=== PATIENT | male | born 1960 | race Caucasian/White ===

== ENCOUNTER 2018-08-21 03:19 | Emergency (ER) | payer OTHER ==
[2018-08-21 03:54] LABS: Bilirubin Small (Negative); Blood, Urine Large (Negative); Clarity Clear (Clear); Glucose, Urine (Dipstick) Negative (Negative); Leukocyte Negative (Negative); Nitrite Negative (Negative); Protein, Urine (Dipstick) 30 mg/dL (Neg-Trace); Urobilinogen 0.2 mg/dL (0.2-1.0)
[2018-08-21 03:56] LABS: Specific Gravity, Urine 1.022 (1.002-1.036)
[2018-08-21] MEDS ORDERED: Ondansetron HCl/PF 4 MG/2 ML Vial ONE (03:56)
[2018-08-21] MEDS ORDERED: Sodium Chloride 0.9% 1,000 ML ONE (03:56)
[2018-08-21 03:57] LABS: Bacteria/HPF None Seen HPF (None Seen); RBC/HPF 21-50 HPF (0-3); Squamous Epithelial 0-3 HPF (0-3); WBC/HPF None Seen HPF (0-3)
[2018-08-21 04:11] LABS: #Basophils 0.1 thou/uL (0.0-0.2); #Eosinphils 0.1 thou/uL (0.0-0.7); #Monocytes 0.9 thou/uL (0.11-0.59); #Neutrophils 6.5 thou/uL (1.40-6.50); %Eosinophils 1.3 % (0.0-10.0); %Monocytes 8.1 % (0.0-10.0); %Neutrophils 61.6 % (42.0-75.0); Hemoglobin 16.7 g/dL (14.0-18.0); Mean Corpuscular HGB CONC 34.5 g/dL (32.0-36.0); Mean Corpuscular Hemoglobin 31.5 pg (27.0-31.0); Mean Corpuscular Volume 91.5 fL (78.0-98.0); Mean Platelet Volume 6.5 fL (7.4-10.4); Platelet Count 263 thou/uL (130-400); RBC Distribution Width 11.1 % (11.5-14.5); Red Blood Cell (RBC) Count 5.29 mill/uL (4.70-6.10); White Blood Cell (WBC) Count 10.6 thou/uL (4.8-10.8)
[2018-08-21 05:15] LABS: ALT (SGPT) 33 U/L (8-55); AST (SGOT) 22 U/L (5-34); Albumin 3.7 g/dL (3.5-5.0); Alkaline Phosphatase 73 U/L (40-150); Anion Gap 13 mmol/L (10-20); BUN (Urea Nitrogen) 16 mg/dL (8.4-25.7); Bilirubin, Total 0.6 mg/dL (0.2-1.2); Calc. Creatinine Clearance 0 mL/min (70-130); Calcium 8.7 mg/dL (7.8-10.44); Carbon Dioxide 22 mmol/L (22-29); Chloride 108 mmol/L (98-107); Estimated GFR-MDRD 69; Globulin 2.2 g/dL (2.4-3.5); Glucose 155 mg/dL (70-105); Lipase 19 U/L (8-78); Potassium 4.6 mmol/L (3.5-5.1); Protein, Total 5.9 g/dL (6.0-8.3); Sodium 138 mmol/L (136-145)
--- NOTE | 2018-08-21 08:22 | CT ---
PRELIMINARY REPORT/[facility]/EMERGENTY AFTER-HOURS PROCEDURE CT Abdomen and Pelvis With Intravenous Contrast CLINICAL HISTORY: 58 years old, male; Pain; Abdominal pain; Flank; Right lower quadrant (rlq); Patient HX: Rlq pain and right sided back pain x 1 hour TECHNIQUE: Axial computed tomography images of the abdomen and pelvis with intravenous contrast. All CT scans at this facility use at least one of these dose optimization techniques: automated exposure control; mA and/or kV adjustment per patient size (includes targeted exams where dose is matched to clinical indication); or iterative reconstruction. Coronal and sagittal reformatted images were created and reviewed. CONTRAST: 96 mL of ISOVUE 370 administered intravenously. COMPARISON: No relevant prior studies available. FINDINGS: Calcified lymph nodes in the left infrahilar region. The lung bases are clear. Right kidney: No visible intrarenal calculus. Delayed concentration of contrast by the right kidney. Mild perinephric stranding. Mild right hydronephrosis and hydroureter. There is a 3 x 4 mm distal right ureteral calculus, about 1 cm from the UVJ. Left kidney: No visible intrarenal calculus, hydronephrosis or visible mass. No hydroureter or visible ureteral calculus. No definite gallbladder abnormality by CT. No biliary tree dilation. Unremarkable appearance of the liver, spleen, adrenal glands, and pancreas. No free air, ascites, or bowel distention. Moderate aortic calcifications. No evidence for abdominal aortic aneurysm. No retroperitoneal adenopathy. CT pelvis: The appendix is visualized and appears normal. There are no CT findings to strongly suggest diverticulitis. Prostate enlargement with transverse diameter of 5.5 cm. Possibly some mild diffuse urinary bladder wall thickening. This may be related to the prostate enlar gement. While nonspecific, this could also indicate evidence for cystitis. Please correlate clinically. IMPRESSION: 3 x 4 mm distal right ureteral calculus, details above. Mild right hydronephrosis and hydroureter. Prostate enlargement and mild urinary bladder wall thickening, see above. Normal appendix. No free air or bowel distention. Other findings discussed above. Thank you for allowing us to participate in the care of your patient. Dictated and Authenticated by: Denver Abbott MD 08/21/2018 5:46 AM Central Time ([place] & [place]) FINAL REPORT: CT OF THE ABDOMEN AND PELVIS WITH IV CONTRAST: INDICATION: Right-sided flank pain. FINDINGS: There is a delayed right nephrogram and mild right hydronephrosis. There is a 2.6 mm stone within th e distal right ureter. Left ureter is normal-appearing. The left kidney is normal-appearing. There is a calcified lymph node within the left infrahilar region. There are calcified granuloma within the spleen. The liver appeared within normal limits. The pancr eas and adrenal glands are normal-appearing. There are moderate calcifications noted involving the abdominal aorta. There is a normal appendix in the right lower quadrant. The colon is largely decompressed. The small bowel appears within normal limits. No free fluid is evident. The prostate is mildly enlarged. There are fat-containing bilat eral inguinal hernias. There is scattered degenerative and osteoarthritic change. IMPRESSION: A 2.6 mm distal right ureteral stone causing mild right hydronephrosis. POS: [facility]
[2018-08-21] MEDS ORDERED: Iopamidol 370 76% 100 ML VIAL ONE (09:00)
== END 2018-08-21 06:15 | disposition home or self-care (01) ==
LOC: NAV ERS 03:19
DX: N13.2 Hydronephrosis with renal and ureteral calculous obstruction (principal); I10 Essential (primary) hypertension; E78.5 Hyperlipidemia, unspecified; Z87.891 Personal history of nicotine dependence; Z79.899 Other long term (current) drug therapy
CPT/HCPCS: 36415; 74177; 80053; 81003; 81015; 83605; 83690; 85025; 87086; 96361; 96374; 96375; J2270; J2405; J7050